=== PATIENT | male | born 1940 | race Caucasian/White ===

== ENCOUNTER 2025-08-27 19:22 | Emergency (ER) | payer MEDICARE ==
[2025-08-27 20:17] LABS: PLATELET COUNT,PLT 191.0 K/uL (130-375); RED BLOOD CELL COUNT 3.99 M/uL (4.14-5.76); WHITE BLOOD CELL COUNT,WBC 9.8 K/uL (3.2-11.0)
[2025-08-27 20:48] LABS: BLOOD UREA NITROGEN,BUN 14.0 mg/dL (7-18); CARBON DIOXIDE,CO2 29.0 mmol/L (21-32); CHLORIDE,CL 97.0 mmol/L (100-108); CREATININE 1.1 mg/dL (0.8-1.3); EST CRCL DRUG DOSING (CG) 50.69 mL/min; ESTIMATED GFR 66.0 mL/min (>60); GLUCOSE RANDOM 161.0 mg/dL (74-106); POTASSIUM,K 3.4 mmol/L (3.6-5.2); SODIUM,NA 136.0 mmol/L (140-148); TROPONIN I HIGH SENSITIVITY 8.2 pg/mL (<=60.3)
== END 2025-08-27 22:12 | disposition home or self-care (01) ==
LOC: JP.ED 19:22
DX: S01.81XA Laceration without foreign body of other part of head, initial encounter (principal); Z79.899 Other long term (current) drug therapy; W01.0XXA Fall on same level from slipping, tripping and stumbling without subsequent striking against object, initial encounter
CPT/HCPCS: 36415; 70450; 80048; 83605; 83735; 84484; 85027; 99283; 99285